=== PATIENT | male | born 1985 | race American Indian/Alaskan Native ===

== ENCOUNTER 2022-06-09 22:49 | Emergency (ER) | payer OTHER ==
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
[2022-06-10 02:57] VITALS: BP 143/99
== END 2022-06-10 03:44 | disposition home or self-care (01) ==
LOC: ED 22:49
DX: S49.91XA Unspecified injury of right shoulder and upper arm, initial encounter (principal); V89.2XXA Person injured in unspecified motor-vehicle accident, traffic, initial encounter; Y93.89 Activity, other specified; Y92.89 Other specified places as the place of occurrence of the external cause; Y99.8 Other external cause status
CPT/HCPCS: 99283